=== PATIENT | male | born 1960 | race Two or more races ===

== ENCOUNTER 2023-08-27 10:40 | Emergency (ER) | payer OTHER, SELFPAY ==
[2023-08-27] VITALS (15 sets, daily range): BP systolic 121–147; BP diastolic 66–92; PULSE 90; TEMP 37; O2SAT 93–98; BMI 35.5
--- NOTE | 2023-08-27 11:15 | ECG_ITS ---
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
[2023-08-27 12:01] LABS: Bilirubin Urine NEGATIVE (NEGATIVE); Blood Urine NEGATIVE (NEGATIVE); Clarity Urine CLEAR (CLEAR); Color Urine YELLOW (YELLOW); Glucose Urine UA NEGATIVE (NEGATIVE); Ketones Urine NEGATIVE (NEGATIVE); Leukocyte Esterase Urine NEGATIVE (NEGATIVE); Nitrite Urine NEGATIVE (NEGATIVE); Protein Urine NEGATIVE (NEG/TRACE); Specific Gravity Urine >=1.030 (1.005-1.025)
[2023-08-27 12:04] LABS: Urine Microscopic Indicated NO
--- NOTE | 2023-08-27 13:08 | XR_ITS ---
The [address] [address] Patient Name: ROHAN ESCOBAR MRN: [id number] date: 1960 Sex: M Assigned Patient Location: ER Current Patient Location: ER Accession/Order Number: [id number] Exam Date: 08/27/2023 13:10 Report Date: 08/27/2023 13:32 At the request of: ROSEY RYAN Procedure: XR chest 1V EXAM: XR chest 1V HISTORY: . Dizziness . COMPARISON: None. TECHNIQUE: Single view of the chest FINDINGS: This is an expiratory chest. Heart is normal in size. There is slight prominence of the bronchovascular markings. Lungs are free of focal infiltrates. There is slight to mild elevation of the right hemidiaphragm. XR/XR chest 1V IMPRESSION: 1. Expiratory chest. 2. Slight prominence of the bronchovascular markings. Findings are most likely due to the expiratory nature the film. Bronchitis cannot be excluded. No consolidation noted. Electronically authenticated by: GIULIANO DEL REAL Date: 08/27/2023 13:32
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
[2023-08-27 13:19] LABS: Basophils Percent Auto 0.2 % (0.2-2.0); Eosinophils Absolute Auto 0.2 10^3/uL (0.0-0.7); Eosinophils Percent Auto 2.9 % (0.9-7.0); Hematocrit 50.8 % (42.0-54.0); Hemoglobin 16.2 g/dL (14.0-18.0); Immature Granulocytes Abs Auto 0.01 10^3/uL (0.00-0.03); Immature Granulocytes Pct Auto 0.2 % (0.0-0.5); Lymphocytes Percent Auto 32.7 % (20.5-60.0); Mean Corpuscular HGB Conc 31.9 g/dL (29.9-35.2); Mean Corpuscular Hemoglobin 30.7 pg (25.9-34.0); Mean Corpuscular Volume 96.4 fL (80.0-94.0); Mean Platelet Volume 9.7 fL (9.5-13.5); Monocytes Absolute Auto 0.4 10^3/uL (0.3-0.8); Neutrophils Absolute Auto 3.5 10^3/uL (1.4-6.5); Platelet Count 139 10^3/uL (150-450); Red Blood Count 5.27 10^6/uL (4.70-6.10); Red Cell Distribution Width 13.2 % (11.0-15.0); White Blood Count 6.1 10^3/uL (4.0-11.0)
[2023-08-27] MEDS: 0.9 % SODIUM CHLORIDE 1,000 ML 1000 ML IV (13:24)
[2023-08-27] MEDS: ONDANSETRON PF 4 MG/2 ML VIAL IV (13:25)
[2023-08-27 13:35] LABS: Alanine Aminotransferase 59 U/L (16-63); Albumin Globulin Ratio 0.7; Albumin Level 3.7 g/dL (3.4-5.0); Alkaline Phosphatase 71 U/L (46-116); Anion Gap 12.5; Aspartate Amino Transferase 48 U/L (15-37); BUN Creatinine Ratio 13.8; Bilirubin Direct 0.4 mg/dL (0.0-0.2); Bilirubin Total 1.7 mg/dL (0.2-1.0); Calcium 9.3 mg/dL (8.5-10.1); Carbon Dioxide 29.5 mmol/L (21.0-32.0); Chloride 101 mmol/L (98-107); Estimated GFR (African America >60 (>=60); Estimated GFR (Non-African Ame >60 (>=60); Glucose 118 mg/dL (74-106); Sodium 139 mmol/L (136-145); Total Protein 8.7 g/dL (6.4-8.2); Troponin I High Sensitivity 8.6 pg/mL (4.0-76.1)
[2023-08-27 14:51] LABS: Bilirubin Urine NEGATIVE (NEGATIVE); Blood Urine NEGATIVE (NEGATIVE); Clarity Urine CLEAR (CLEAR); Color Urine YELLOW (YELLOW); Glucose Urine UA NEGATIVE (NEGATIVE); Ketones Urine NEGATIVE (NEGATIVE); Leukocyte Esterase Urine NEGATIVE (NEGATIVE); Nitrite Urine NEGATIVE (NEGATIVE); Protein Urine TRACE mg/dL (NEG/TRACE); Specific Gravity Urine >=1.030 (1.005-1.025)
[2023-08-27 14:59] LABS: Bacteria Urine NONE SEEN #/HPF (NONE SEEN); Mucus Urine MODERATE (NONE SEEN); RBC Urine NONE SEEN #/HPF (0-2); Squamous Epithelial Cell Urine FEW #/LPF (NONE/RARE); WBC Urine NONE SEEN #/HPF (NONE SEEN)
[2023-08-27 15:00] LABS: Sperm Urine SEEN
== END 2023-08-27 15:24 | disposition home or self-care (01) ==
PROVIDERS: Emergency Provider Emergency Medicine
DX: R42 Dizziness and giddiness (principal); T67.9XXA Effect of heat and light, unspecified, initial encounter; X30.XXXA Exposure to excessive natural heat, initial encounter
CPT/HCPCS: 36415; 71045; 80048; 80076; 81001; 81003; 84484; 85025; 93005; 96361; 96374; 99285; J2405

== ENCOUNTER 2024-08-10 16:16 | Emergency (ER) | payer OTHER, MEDICARE, SELFPAY ==
[2024-08-10 16:20] VITALS: BP 150/83; PULSE 104; TEMP 36.6; O2SAT 97; BMI 34.6
--- NOTE | 2024-08-10 16:33 | XR_ITS ---
The [place] [address] Patient Name: ROHAN ESCOBAR MRN: [id number] date: 1960 Sex: M Assigned Patient Location: ED.MAIN Current Patient Location: ED.MAIN Accession/Order Number: [id number] Exam Date: 08/10/2024 16:48 Report Date: 08/10/2024 16:48 At the request of: ROSEY RYAN MD Procedure: XR chest 1V Plain film chest Single view HISTORY: Cough for 6 weeks COMPARISON: 08/27/2023 FINDINGS: SUPPORT DEVICES: None POSTSURGICAL CHANGES: None HEART: Within normal limits PULMONARY ANASTASIIA: Within normal limits MEDIASTINUM: Unremarkable LUNGS AND PLEURA: No acute lung process, pleural effusion or pneumothorax identified. BONY STRUCTURES: Intact ADDITIONAL FINDINGS None XR/XR chest 1V IMPRESSION: No acute process. Impression dictated by: Asael Dumont M.D. 08/10/2024 4:48 PM Dictation Location: [place] Electronically authenticated by: [id number] Y Date: 08/10/2024 16:48
--- NOTE | 2024-08-10 16:34 | ED.GENADUL1 ---
HPI HPI - General Adult General Chief complaint: Upper Respiratory Infection Stated complaint: cough, congestion Time Seen by Provider: 08/10/24 16:19 Source: patient Mode of arrival: walk-in Limitations: no limitations History of Present Illness HPI narrative: 64-year-old male presents for cough that he has had for 6 weeks. He states he is not coughing up any phlegm and has not had a fever. No hemoptysis. He smoked in the remote past and has no diagnosis of COPD or asthma. He is on lisinopril. Related Data Home Medications ?Medication ?Instructions ?Recorded ?Confirmed atorvastatin 80 mg tablet 80 mg PO DAILY 08/10/24 08/10/24 bupropion HCl 150 mg tablet,12 hr 150 mg PO Q12H 08/10/24 08/10/24 sustained-release (Wellbutrin SR) duloxetine 30 mg capsule,delayed 30 mg PO DAILY 08/10/24 08/10/24 release lisinopril 20 mg tablet 20 mg PO DAILY 08/10/24 08/10/24 pantoprazole 40 mg tablet,delayed 40 mg PO DAILY 08/10/24 08/10/24 release Previous Rx's ?Medication ?Instructions ?Recorded benzonatate 100 mg capsule 100 mg PO TID PRN cough #20 caps 08/10/24 Allergies Allergy/AdvReac Type Severity Reaction Status Date / Time No Known Drug Allergies Allergy Verified 08/10/24 16:20 Opioid HPI Opioid Management Most Recent Opioid Data: Last Pain Scale 8 Today, 16:20 Review of Systems ROS Narrative A ten point review of systems is negative except as noted above. PFSH PFSH Social History Little interest or pleasure in doing things: not at all Feeling down, depressed, or hopeless: not at all Exam Narrative Exam Narrative: Nurses note and vital signs reviewed and patient is not hypoxic. General: The patient appears in no apparent distress. Skin: Warm, dry, no pallor noted. There is no rash noted. Head: Normocephalic, atraumatic Eye: Normal conjunctiva, no drainage Ears, Nose, Mouth, and Throat: oral mucosa is moist. Nares patent. Cardiovascular: Regular Rate and Rhythm Respiratory: Patient is in no distress, no accessory muscle use, lungs are clear to auscultation, no wheezing, rales or rhonchi. Back: non-tender GI: Soft and nontender Musculoskeletal: The patient has no evidence of calf tenderness, no pitting edema, symmetrical pulses noted bilaterally Neurological: A&O, normal speech Psychiatric: Cooperative Constitutional Vital Signs, click to edit/add: Last Vital Signs Temp 97.9 F 08/10/24 16:20 Pulse 104 H 08/10/24 16:20 Resp 20 08/10/24 16:20 BP 150/83 H 08/10/24 16:20 Pulse Ox 97 08/10/24 16:20 Course Vital Signs Vital signs: Vital Signs Temperature 97.9 F 08/10/24 16:20 Pulse Rate 104 H 08/10/24 16:20 Respiratory Rate 20 08/10/24 16:20 Blood Pressure 150/83 H 08/10/24 16:20 Pulse Oximetry 97 08/10/24 16:20 Temperature 97.9 F 08/10/24 16:20 Pulse Rate 104 H 08/10/24 16:20 Respiratory Rate 20 08/10/24 16:20 Blood Pressure 150/83 H 08/10/24 16:20 Pulse Oximetry 97 08/10/24 16:20 Medical Decision Making MDM Narrative Medical decision making narrative: The patient has a chronic cough and a negative chest x-ray. He is on lisinopril which is likely the cause of his chronic cough. He will be prescribed Tessalon but will contact his PCP to arrange having his blood pressure medication switch. Treatment diagnosis and follow-up were discussed with the patient. Differential Diagnosis Differential Diagnosis: Pneumonia, lung mass, medication side effect Imaging Data Chest x-ray: Radiologist's impression: ITS Impressions Chest X-Ray 08/10/24 16:33 IMPRESSION: No acute process. Impression dictated by: Asael Dumont M.D. 08/10/2024 4:48 PM Dictation Location: [employer] Electronically authenticated by: [id number] Y Date: 08/10/2024 16:48 Discharge Plan Discharge Chief Complaint: Upper Respiratory Infection Clinical Impression: Chronic cough Patient Disposition: Home, Self-Care Time of Disposition Decision: 16:59 Condition: Good Mode of Transportation: Private Vehicle Prescriptions / Home Meds: New benzonatate 100 mg capsule 100 mg PO TID PRN (Reason: cough) Qty: 20 0RF No Action atorvastatin 80 mg tablet 80 mg PO DAILY bupropion HCl [Wellbutrin SR] 150 mg tablet sustained-release 12 hr 150 mg PO Q12H duloxetine 30 mg capsule,delayed release(DR/EC) 30 mg PO DAILY lisinopril 20 mg tablet 20 mg PO DAILY pantoprazole 40 mg tablet,delayed release (DR/EC) 40 mg PO DAILY Print Language: Greek Instructions: Chronic Cough (ED) Additional Instructions: You have a chronic cough which is likely caused by the lisinopril. Contact your PCP to arrange changing her blood pressure medication. Referrals: Physician,Non-Staff, MD [Primary Care Provider] - 1 week
== END 2024-08-10 17:08 | disposition home or self-care (01) ==
PROVIDERS: Emergency Provider Emergency Medicine
DX: R05.3 Chronic cough (principal); Z87.891 Personal history of nicotine dependence; Z79.899 Other long term (current) drug therapy
CPT/HCPCS: 71045; 99283